=== PATIENT | female | born 1945 | race Caucasian/White ===

== ENCOUNTER → 2016-12-05 | Outpatient (CLI) | payer MEDICARE, BC ==
[~2016-12-05] MED LIST: ALBUTEROL2.5 MG/0.5 INH; ALLEGRA ALLERG180 MG PO; ALPRAZOLAM PO; AZITHROMYCIN500 MG PO; CALCIUM 600 + D1 TA1 PO; CALCIUM CITRAT1 EAC2 PO; CIPRO250 MG PO; COMBIVENT MININEB INH; COZAAR100 MG PO; NASACORT10.8 ML; NATURAL VITA400 UNI2 PO; NORCO1 TAB 10/3; OMNICEF PO; PREDNISONE PO; TRAMADOL HCL50 M2 PO; VIT B12 PO; VIT E PO; VITAL-D RX TABL1 TAB PO; VITAMIN B-121000 MCG PO; VITAMIN B122500 MCG; VITAMIN D32000 UNIT PO; ZOCOR20 MG PO; ZOLOFT100 MG PO
--- NOTE | ~2016-12-05 | MY11 ---
[facility] A Service of [facility] RADIOLOGY TEXT RESULTS PATIENT: ISMA MOREIRA LOCATION: [facility] : 47 UNIT #: [id number] AGE: [address]: Parvez Tena MD SEX: F ORDER DR: [id number] [facility] [address] [place], [place] [address] [id number] O MR#: [id number] Acc #: [id number] NAME: ISMA MOREIRA : 1945 SEX: F STUDY DATE/TIME: 12/05/2016 9:07 UNIT: [facility] ROOM: STUDY DESCRIPTION: MY Mammogram Screening Dig Phan Attending Physician: Parvez Tena M.D. Ordering Physician: Parvez Tena M.D. Primary Care Physician: Parvez Tena M.D. MEDICAL IMAGING REPORT This report is preliminary unless electronic signature is present EXAM Bilateral digital screening mammogram with CAD, 12/05/2016 HISTORY No personal or family history of breast cancer or current complaints. COMPARISON Bilateral screening mammogram 09/08/2014, 08/24/2013, 08/21/2012. FINDINGS CC and MLO views were obtained of each breast utilizing digital technique and reviewed with an FDA-approved CAD device. Extremely dense fibroglandular tissue is seen in the anterior two-thirds of each breast which can limit sensitivity of mammography. No definite new or suspicious nodule, architectural distortion or clustered microcalcification is seen. Benign appearing calcifications are present bilaterally. IMPRESSION Routine screening mammogram recommended in 1 year. Of particular note, given the significantly increased density in both breasts, the patient may benefit from 3-D breast tomosynthesis. Patients over the age of 40 are entered into a reminder system with target due date for the next mammogram. A result letter will also be sent to the patient. BIRADS: 2 Benign Finding Dictated by... Ni Gross M.D. [facility] A Service of [facility] RADIOLOGY TEXT RESULTS PATIENT: ISMA MOREIRA LOCATION: [facility] : 47 UNIT #: [id number] AGE: [address]: Parvez Tena MD SEX: F ORDER DR: THIS IS AN ELECTRONICALLY VERIFIED REPORT Ni Gross M.D. at 12/06/2016 7:03 AM Irina TD: 12/05/2016 12:27 JOB #: [id number] MEDICAL IMAGING REPORT Page 1 of 1 COPY
--- NOTE | ~2016-12-05 | BD1 ---
[facility] A Service of [facility] RADIOLOGY TEXT RESULTS PATIENT: ISMA MOREIRA LOCATION: [facility] : 47 UNIT #: [id number] AGE: [address]: Parvez Tena MD SEX: F ORDER DR: [id number] [facility] [address] [place], [place] [address] [id number] O MR#: [id number] Acc #: [id number] NAME: ISMA MOREIRA : 1945 SEX: F STUDY DATE/TIME: 12/05/2016 9:11 UNIT: [facility] ROOM: STUDY DESCRIPTION: BD Dexa Bone Dens 1+ Site Attending Physician: Parvez Tena M.D. Ordering Physician: Parvez Tena M.D. Primary Care Physician: Parvez Tena M.D. MEDICAL IMAGING REPORT This report is preliminary unless electronic signature is present EXAM DXA scan 12/05/2016 HISTORY Status post menopause with no hormone replacement therapy. Osteopenia. Hysterectomy at age 35 with removal of 1 ovary. Arthritis. Smoking history for 15 years. FINDINGS Bone mineral density in the lumbar spine from L1-L4 is 0.818 g/cm2 which is 2.1 standard deviations below the mean when compared to the young adult reference population which is characteristic of osteopenia. This is 00 standard deviations from the mean when compared to the age-matched population. Compared with 09/08/2014 there has been a decrease in bone mineral density in the lumbar spine of 2.8%. Bone mineral density in the left femoral neck was 0.754 g/cm2 which is 0.9 standard deviations below the mean when compared to the young adult reference population which is within the range of normal. This is 1 standard deviation above the mean when compared to the age-matched population. Compared with 09/08/2014 there has been an increase in bone mineral density in the left hip of 4.7%. IMPRESSION Bone mineral density in the lumbar spine characteristic of osteopenia within the left hip within the range of normal. Compared with 09/08/2014 there has been a decrease in bone mineral density in the lumbar spine and an increase in bone mineral density in the left hip Dictated by... Tani Ledezma M.D. THIS IS AN ELECTRONICALLY VERIFIED REPORT Tani Ledezma M.D. at 12/06/2016 8:07 AM KRT/rnr [facility] A Service of [facility] & [facility] RADIOLOGY TEXT RESULTS PATIENT: ISMA MOREIRA LOCATION: [facility] : 47 UNIT #: [id number] AGE: [address]: Parvez Tena MD SEX: F ORDER DR: TD: 12/05/2016 13:09 JOB #: [id number] MEDICAL IMAGING REPORT Page 1 of 1 COPY
== END | disposition home or self-care (01) ==
LOC: CWCC 08:36
DX: Z12.31 Encounter for screening mammogram for malignant neoplasm of breast (principal); M85.80 Other specified disorders of bone density and structure, unspecified site; M85.88 Other specified disorders of bone density and structure, other site
CPT/HCPCS: 77080; G0202